=== PATIENT | female | born 1955 | race Caucasian/White ===

== ENCOUNTER 2016-10-13 16:51 | Inpatient (IN) | payer BC ==
[~2016-10-13] VITALS: Ht 165.1 cm; Wt 108.0 kg
--- NOTE | ~2016-10-13 | HC ---
[facility] [place] [address] CONSULTATION Name: BARRIE ARCOS Room #: 305-P ADM IN M.R.#: [id number] Admission: 10/13/16 Attend Phys: Ling Lopez Discharge: Date of : 57 Report #: [id number] THIS REPORT FOR: //name// CC: Ling Eaton REASON FOR CONSULTATION: I was asked to evaluate concerning fever and right groin pain. HISTORY OF PRESENT ILLNESS: The patient is a 61-year-old who developed pain second week of September involving her right groin. She reports no specific trauma other than she stretched a little bit more than normal the day before when she was getting in and out a jeep. Initially no fever, chills, or sweats. She did have significant pain that limited her range of motion for several days. She then fell a bit better in last weekend, went on a camping trip to in [place]. While there, she had acute worsening of her pain. Presented to the emergency room in [place], [place] where CT showed some nonspecific staining in the perinephric fat, otherwise was unremarkable. She did not improve the following this and now returns for further evaluation. She has had low-grade fever. She has had nausea. Her pain has been excruciating involving the right groin across the pelvis. No recent surgery. No recent dental work. No other invasive procedures done prior to this. She did receive one dose of ciprofloxacin prior to admission, now is on vancomycin and Zosyn. She has had a hysterectomy. No bowel procedures done. REVIEW OF SYSTEMS: Notes no headache, cough, sputum, back pain, although she does have some pain in the right buttock and lower back region on the right. No seizures or other neurologic complaints. No travel outside the [place]. ALLERGIES: CODEINE. MEDICATIONS: As noted on her MAR, which were reviewed. PAST MEDICAL HISTORY: Hysterectomy, right ovarian cyst removal, cholecystectomy, thyroid cancer with thyroidectomy, hypertension, hyperlipidemia, carpal tunnel syndrome, and diet controlled diabetes. FAMILY HISTORY: Coronary artery disease and cancer. SOCIAL HISTORY: Nonsmoker, no significant alcohol intake. PHYSICAL EXAMINATION: VITAL SIGNS: Maximum temperature has been 99.4, hemodynamically stable, room air saturation was 93%. GENERAL: She was alert, cooperative, and pleasant, in no acute distress. She is obese. [address] [address] CONSULTATION Name: BARRIE ARCOS Room #: 305-P [facility] IN M.R.#: [id number] Admission: 10/13/16 Attend Phys: Ling Lopez Discharge: Date of : 57 Report #: [id number] SKIN: Unremarkable. LYMPH: Unremarkable. HEENT: Unremarkable. NECK: Supple. LUNGS: Clear. HEART: Regular, without murmur. ABDOMEN: Soft, was tender in the pelvic region. No appreciable hepatosplenomegaly or mass. She had significant amount of tenderness when palpating the groin pubic region. No perianal tenderness. No perineal tenderness. Vaginal examination was not performed. EXTREMITIES: She had pain and guarding when moving her right hip. She did have range of motion in the hip. Other joints were normal. There was much irritability in the pelvic region when I laid her down in the bed. NEUROLOGIC: Normal. LABORATORY STUDIES: Sodium 131, potassium 3.5, bicarbonate 23, creatinine 0.7. Hemoglobin 11.6, white count 6.5. Differential was unremarkable. It is noted she did have 28% bands yesterday, platelet count 205,000. Urinalysis, 2+ protein. CT scan of the abdomen and pelvis showed adductor brevis ring enhancing mass within the belly of the muscle, 1.8 x 4 x 2.4 cm. IMPRESSION: A 61-year-old with right pelvic soft tissue mass, suspecting abscess or possible infected hematoma, do not have a characteristics of malignancy. No intraabdominal issues noted on her CAT scan or ultrasound of the pelvis. She did; however, have several scattered sigmoid and descending colon diverticular changes without evidence of inflammation. Recommend needle aspiration if possible and have orthopedic surgery consultation. <ELECTRONICALLY SIGNED> By: Dave Chand MD 10/15/16 0951 [id number] Dave Chand MD /nt
--- NOTE | ~2016-10-13 | 2DMMODE ---
[facility] [address] [address] [place] [address] 2 D/M-MODE ECHOCARDIOGRAM Name: JOSSELYNBARRIEHAWA DOSS Room #: 305-P ADM IN M.R.#: [id number] Admission: 10/13/16 Attend Phys: Ling Walker Discharge: Date of : 57 Date of Service: 10/15/16 1521 Report #: [id number] THIS REPORT FOR: //name// APPROVED REPORT Study performed: 10/15/2016 12:17:31 EXAM: Comprehensive 2D, Doppler, and color-flow Echocardiogram Patient Location: Bedside Room #: 305 Status: routine Other Information Study Quality: Adequate Indications Hx Staph Aureus Bacteremia, High Choesterol, Fever, HPN, DM 2D Dimensions RVDd: 44.91 mm LVEF(%): 52.53 (>50%) IVSd: 8.89 (7-11mm) LVOT Diam: 20.10 (18-24mm) LVDd: 48.28 mm PWd: 8.44 (7-11mm) LVDs: 35.25 (25-40mm) Aortic Root: 29.09 mm Looney's LVEF: 52.53 % Volumes Left Atrial Volume (Systole) Single Plane 4CH: 73.71 mL LA ESV Index: 74.00 mL/m2 Aortic Valve AoV Peak Rip.: 1.38 m/s AO Peak Gr.: 7.64 mmHg LVOT Max P.35 mmHg LVOT Max V: 1.04 m/s DAYANA Vmax: 2.39 cm2 Mitral Valve E/A Ratio: 1.4 MV Decel. Time: 207.25 ms MV E Max Rip.: 1.00 m/s MV A Rip.: 0.69 m/s MV PHT: 60.10 ms IVRT: 64.59 ms [facility] [place] [address] 2 D/M-MODE ECHOCARDIOGRAM Name: JOSSELYNBARRIE SELAM Room #: 305-P [facility] IN M.R.#: [id number] Admission: 10/13/16 Attend Phys: Ling Walker Discharge: Date of : 57 Date of Service: 10/15/16 1521 Report #: [id number] Pulmonary Valve PV Peak Rip.: 0.89 m/s PV Peak Gr.: 3.20 mmHg Pulmonary Vein P Vein S: 0.58 m/s P Vein D: 0.58 m/s P Vein S/D Ratio: 1.00 Tricuspid Valve TR Peak Rip.: 3.05 m/s RAP Estimate: 10.00 mmHg TR Peak Gr.: 37.30 mmHg PA Pressure: 47.00 mmHg Left Ventricle The left ventricle is normal size. There is normal LV segmental wall motion. There is normal left ventricular wall thickness. The left ventricular systolic function is normal. The left ventricular ejection fraction is within the normal range. LVEF is 55%. The left ventricular diastolic function is normal. Right Ventricle The right ventricle is normal size. The right ventricular systolic function is normal. Atria Left atrium is dilated. Right atrium is at the upper limits of normal. Aortic Valve The aortic valve is normal in structure. Trace aortic regurgitation. There is no aortic valvular stenosis. Mitral Valve The mitral valve is normal in structure. Trace mitral regurgitation. No evidence of mitral valve stenosis. Tricuspid Valve The tricuspid valve is normal in structure. There is trace to mild tricuspid regurgitation. The right atrial pressure is estimated at 10 mmHg. There is moderate pulmonary hypertension with an estimated PAP of 47 mmHg. Pulmonic Valve The pulmonary valve is normal in structure. Trace pulmonic regurgitation. [address] [address] 2 D/M-MODE ECHOCARDIOGRAM Name: BARRIE ARCOS SELAM Room #: 305-P [facility] IN .R.#: [id number] Admission: 10/13/16 Attend Phys: Ling Walker Discharge: Date of : 57 Date of Service: 10/15/16 1521 Report #: [id number] Great Vessels The aortic root is normal in size. The ascending aorta is normal in size. IVC is dilated measuring 2.2 cm. Pericardium There is no pericardial effusion. <Conclusion> The left ventricle is normal size. LVEF is 55%. Left atrium is dilated. The aortic valve is normal in structure. Trace aortic regurgitation. The mitral valve is normal in structure. Trace mitral regurgitation. The tricuspid valve is normal in structure. There is trace to mild tricuspid regurgitation. The right atrial pressure is estimated at 10 mmHg. There is moderate pulmonary hypertension with an estimated PAP of 47 mmHg. The pulmonary valve is normal in structure. Trace pulmonic regurgitation. <ELECTRONICALLY SIGNED> By: Alexandru Cota MD 10/15/16 1521 1521 1521 Alexandru Cota MD /INF
--- NOTE | ~2016-10-13 | TEE ---
[facility] [address] [place] [address] TRANSESOPHAGEAL ECHOCARDIOGRAM Name: BARRIE ARCOS Room #: 305-P ADM IN M.R.#: [id number] Admission: 10/13/16 Attend Phys: Blanca Jiménez Discharge: Date of : 57 Date of Service: 10/18/16 0949 Report #: [id number] THIS REPORT FOR: //name// APPROVED REPORT Study performed: 10/18/2016 08:02:36 EXAM: Comprehensive 2D, Doppler, and color-flow Echocardiogram Room #: 305 Other Information Study Quality: Good Echo Enhancing Agent Indication: Rule out Shunt Agent(s) / Amount(s) Used: Agitated Saline 6 cc Procedure After obtaining informed consent, patient underwent transesophageal echo in the [facility]. Type of Sedation : Conscious Sedation Versed (4 mg) Fentanyl (50 mcg) Transesophageal probe was inserted and advanced into esophagus without difficulty by Duarte Davis MD. Echo enhancement indication: R/O Septal defect. Echo enhancement agent administered: Agitated Saline The LARA was performed without complications. Throughout the procedure, the blood pressure, pulse oximetry, cardiac rhythm, and rate were monitored. The patient tolerated the procedure without adverse effects. Recovery from conscious sedation was uneventful and vital signs were stable. Left Ventricle The left ventricle is normal size. There is normal LV segmental wall motion. There is normal left ventricular wall thickness. The left ventricular systolic function is normal. The left ventricular ejection fraction is within the normal range. LVEF 60%. Right Ventricle The right ventricle is normal size. The right ventricular systolic function is normal. Atria Normal left atrium. No masses or clots. Injection of contrast [facility] [address] [place] [address] TRANSESOPHAGEAL ECHOCARDIOGRAM Name: BARRIE ARCOS Room #: 305-P ADM IN M.R.#: [id number] Admission: 10/13/16 Attend Phys: Blanca Jiménez Discharge: Date of : 57 Date of Service: 10/18/16 0949 Report #: [id number] documented no shunting Right atrium is at the upper limits of normal. Aortic Valve The aortic valve is normal in structure. No aortic regurgitation is present. There is no aortic valvular stenosis. Mitral Valve The mitral valve is normal in structure. Mild mitral regurgitation. No evidence of mitral valve stenosis. Tricuspid Valve The tricuspid valve is normal in structure. Trace to mild tricuspid regurgitation. Pulmonic Valve The pulmonary valve is normal in structure. There is no pulmonic valvular regurgitation. Great Vessels The aortic root is normal in size. IVC is normal in size and collapses >50% with inspiration. Pericardium There is no pericardial effusion. <Conclusion> The left ventricular systolic function is normal. EF 65%. No shunting by contrast bubble injection Indwelling catheter with tip well into right atrium No masses or clots in left atrium or left atrial appendage The aortic valve is normal in structure. No aortic regurgitation or stenosis The mitral valve is normal in structure. Mild mitral regurgitation. There is no pericardial effusion. No masses or vegetations <ELECTRONICALLY SIGNED> By: Duarte Davis MD, [facility] 10/18/1649 Duarte Davis MD, [facility] /INF
--- NOTE | ~2016-10-13 | HC ---
[facility] [address] [address] [place] [address] CONSULTATION Name: BARRIE ARCOS Room #: 305-P ADM IN M.R.#: [id number] Admission: 10/13/16 Attend Phys: Ling Lopez Discharge: Date of : 57 Report #: [id number] THIS REPORT FOR: //name// CC: Ling Lopez Tri Eaton DATE OF SERVICE: 10/14/2016 HISTORY OF PRESENT ILLNESS: I have been asked to evaluate this 61-year-old lady who presented to the emergency department with lower abdominal pain and bilateral groin pain with onset approximately 3 days ago. The patient intermittently had the pain off and on for 3 weeks. She was on a camping trip with her and became so severe the and son had to carry her. She saw her primary care physician in mid September for the lower abdominal pain and the bilateral groin pain. She has been having fevers. She was given muscle relaxants with minimal improvement. She denies any change in recent bowel activity or bowel changes. The patient's fever and chills with nausea began approximately 3 days ago and have been progressively worsening. She had a CT scan performed in [place], [place] during the camping trip, which demonstrated nonspecific changes. [facility] was consistent with an intermuscular pelvic side wall abscess of 3-4 cm diameter. PAST MEDICAL HISTORY: Consistent with cholelithiasis; diabetes mellitus type 2, diet controlled; thyroid cancer; hypertension and hypercholesterolemia. PAST SURGICAL HISTORY: Tubal ligation, right ovarian cystectomy in 1978, hysterectomy in 1988, cholecystectomy in 1991, thyroidectomy in 2002 and carpal tunnel surgery bilaterally. MEDICATIONS: Melatonin at bedtime, losartan, Cozaar 50 mg daily, Nexium 40 mg, Lipitor 20 mg, Synthroid 0.125 mg, Zyrtec 10, fish oil 1000 mg daily, cholecalciferol, vitamin D and vitamin B12. SOCIAL HISTORY: Does not use tobacco. . Lives with spouse. Occasional alcohol use, but rare, on special occasions. No illegal drugs. ALLERGIES: CODEINE. REVIEW OF SYSTEMS: A 10-point review of systems: The patient has generalized fevers over the last 2-3 days. She denies any abrasions, lacerations or bone fractures over the last 6 months to a year. No unusual abnormalities or injuries to the right extremity or pelvis. PHYSICAL EXAMINATION: GENERAL: Reveals a lady who is resting comfortably in bed, complaining of right hip pain and bilateral lower abdominal pain. Oriented times 3, [place] [address] CONSULTATION Name: BARRIE ARCOS Room #: 305-P [facility] IN M.R.#: [id number] Admission: 10/13/16 Attend Phys: Ling Lopez Discharge: Date of : 57 Report #: [id number]. VITAL SIGNS: She is afebrile currently. Vital signs are within normal limits. HEENT: Pupils equal, round and react to light. No scleral icterus. NECK: Supple. No adenopathy. LUNGS: Clear at the bases. CARDIOVASCULAR: Regular rate and rhythm. ABDOMEN: Obese. Mild tenderness in the right lower quadrant, over the anterior iliac crest region. NEUROLOGIC: She is oriented times 3, with bilateral motor symmetry. LABORATORY DATA: Review of the CT scan demonstrates the 3-4 cm lateral pelvic sidewall abscess, in the intermuscular abdominal wall in the pelvis. White count within normal limits. No other abnormalities. DIAGNOSTIC IMPRESSION: Abdominal wall and pelvic side wall abscess. This will require interventional radiology consultation and possible CAT scan-guided drainage. Also consider consultation with orthopedic surgery if this requires surgical drainage. Thank you for allowing us to participate in her care. We will follow her with you. <ELECTRONICALLY SIGNED> By: Timothy Rivers MD, FACS 10/15/16 0945 1134 1544 Timothy Rivers MD, FACS /nt
[2016-10-13 16:53] VITALS: BP 115/85
[2016-10-13 18:44] LABS: HEMOGLOBIN 12.5 gm/dL (12.0-15.0); MCH 28.4 pg (26.0-34.0); MCHC 33.9 g/dL (28.0-37.0); PLATELET COUNT 241 thou/uL (150-400); RBC 4.41 mil/uL (4.20-5.00); WBC 8.4 thou/uL (4.0-11.0)
[2016-10-13 18:45] LABS: MANUAL DIFF YES
[2016-10-13 18:51] LABS: CALCIUM 8.8 mg/dL (8.5-10.1); CREATININE 0.9 mg/dL (0.6-1.0); POTASSIUM 3.8 mmol/L (3.5-5.1)
[2016-10-13 19:06] LABS: ABSOLUTE NEUTROPHILS 7.6 thou/uL (1.4-8.2); TOTAL CELL COUNT 100
[2016-10-13 21:05] LABS: URINE BILIRUBIN 1+ (Negative); URINE BLOOD 1+ (Negative); URINE COLOR YELLOW; URINE GLUCOSE-RANDOM* NEGATIVE (Negative); URINE KETONES 1+ (Negative); URINE LEUKOCYTES-REFLEX NEGATIVE (Negative); URINE PROTEIN (DIPSTICK) 2+ (Negative); URINE SPECIFIC GRAVITY 1.015 (1.003-1.035)
[2016-10-13 21:06] LABS: ICTOTEST (BILI CONFIRMATORY) Negative (Negative)
[2016-10-13 21:14] LABS: SQUAMOUS >10 Many /LPF (0-3)
[2016-10-13 21:15] LABS: CASTS None Seen /LPF (None Seen); URINE RBC 0-2 Rare /HPF (0-2)
[2016-10-13 21:16] LABS: AMORPHOUS URATES Moderate /LPF (None Seen); URINE WBC-REFLEX 0-5 Rare /HPF (0-5)
[2016-10-13 23:09] VITALS: BP 140/75
[2016-10-14] VITALS (12 sets, daily range): BP systolic 120–142; BP diastolic 9–70
[2016-10-14] MEDS ORDERED: MELATONIN PO (00:37)
[2016-10-14] MEDS ORDERED: LIPITOR 20 MG T20 M1 PO (00:38)
[2016-10-14] MEDS ORDERED: NEXIUM40 MG PO (00:38)
[2016-10-14] MEDS ORDERED: COZAAR 50 MG TA50 M2 PO (00:38)
[2016-10-14] MEDS ORDERED: FISH OIL 1,001000 M2 PO (00:39)
[2016-10-14] MEDS ORDERED: LEVOTHYROXIN0.125 M1 PO (00:39)
[2016-10-14] MEDS ORDERED: ZYRTEC10 M4 PO (00:39)
[2016-10-14] MEDS ORDERED: CO Q-10100 MG PO (00:41)
[2016-10-14] MEDS ORDERED: VITAMIN D1000 UNI1 PO (00:46)
[2016-10-14] MEDS ORDERED: B-12500 MCG PO (00:47)
[2016-10-14 06:40] LABS: ABSOLUTE NEUTROPHILS 5.5 thou/uL (1.4-8.2); BASOPHILS 0.5 % (0.0-2.0); EOSINOPHILS 0.2 % (0.0-3.0); HEMATOCRIT 34.1 % (37.0-47.0); HEMOGLOBIN 11.6 gm/dL (12.0-15.0); LYMPHOCYTES 8.1 % (24.0-44.0); MCH 28.4 pg (26.0-34.0); MCHC 33.9 g/dL (28.0-37.0); MCV 83.9 fL (80.0-100.0); MONOCYTES 6.4 % (1.0-8.0); PLATELET COUNT 205 thou/uL (150-400); POLYS 84.8 % (36.0-66.0); RBC 4.07 mil/uL (4.20-5.00); WBC 6.5 thou/uL (4.0-11.0)
[2016-10-14 06:43] LABS: MANUAL DIFF NO
[2016-10-14 06:53] LABS: CALCIUM 8.2 mg/dL (8.5-10.1); CREATININE 0.7 mg/dL (0.6-1.0); POTASSIUM 3.5 mmol/L (3.5-5.1)
[2016-10-14 11:14] LABS: INR 1.1; PROTIME 11.6 Seconds (9.3-11.4)
[2016-10-15 03:18] LABS: GLYCOHEMOGLOBIN (HGB A1C) 6.3 % (4.8-5.6)
[2016-10-15 04:00] VITALS: BP 121/60
[2016-10-15 07:22] LABS: CALCIUM 7.8 mg/dL (8.5-10.1); CREATININE 0.6 mg/dL (0.6-1.0); POTASSIUM 3.3 mmol/L (3.5-5.1)
[2016-10-15 08:15] LABS: ABSOLUTE NEUTROPHILS 5.3 thou/uL (1.4-8.2); BASOPHILS 0.2 % (0.0-2.0); EOSINOPHILS 1.8 % (0.0-3.0); HEMATOCRIT 31.5 % (37.0-47.0); HEMOGLOBIN 10.4 gm/dL (12.0-15.0); MCH 27.7 pg (26.0-34.0); MCHC 32.9 g/dL (28.0-37.0); MCV 84.3 fL (80.0-100.0); MONOCYTES 8.6 % (1.0-8.0); PLATELET COUNT 217 thou/uL (150-400); POLYS 77.4 % (36.0-66.0); RBC 3.73 mil/uL (4.20-5.00); WBC 6.9 thou/uL (4.0-11.0)
[2016-10-15 08:20] VITALS: BP 118/64
[2016-10-15 08:20] LABS: MANUAL DIFF NO
[2016-10-15 16:46] VITALS: BP 142/78
[2016-10-15 19:32] VITALS: BP 122/52
[2016-10-16 04:08] VITALS: BP 133/64
[2016-10-16 08:00] VITALS: BP 117/66
[2016-10-16 09:56] LABS: HEMATOCRIT 33.9 % (37.0-47.0); HEMOGLOBIN 11.3 gm/dL (12.0-15.0); MCH 27.8 pg (26.0-34.0); MCHC 33.3 g/dL (28.0-37.0); MCV 83.3 fL (80.0-100.0); RBC 4.07 mil/uL (4.20-5.00); RDW 15.6 % (10.5-14.5); WBC 6.7 thou/uL (4.0-11.0)
[2016-10-16 16:00] VITALS: BP 161/66
[2016-10-16 19:37] VITALS: BP 139/69
[2016-10-17 04:04] VITALS: BP 147/65
[2016-10-17 08:00] VITALS: BP 132/66
[2016-10-17 16:00] VITALS: BP 158/70
[2016-10-17 20:14] VITALS: BP 150/78
[2016-10-18 03:16] VITALS: BP 179/87
[2016-10-18 05:50] LABS: ABSOLUTE NEUTROPHILS 5.3 thou/uL (1.4-8.2); BASOPHILS 0.4 % (0.0-2.0); EOSINOPHILS 2.1 % (0.0-3.0); HEMATOCRIT 30.7 % (37.0-47.0); HEMOGLOBIN 10.5 gm/dL (12.0-15.0); MCH 28.5 pg (26.0-34.0); MCHC 34.3 g/dL (28.0-37.0); MCV 83.1 fL (80.0-100.0); MONOCYTES 8.7 % (1.0-8.0); POLYS 69.8 % (36.0-66.0); RDW 15.4 % (10.5-14.5); WBC 7.6 thou/uL (4.0-11.0)
[2016-10-18 05:54] LABS: MANUAL DIFF NO; PLATELET COUNT 378 thou/uL (150-400)
[2016-10-18 06:04] LABS: ALBUMIN 1.8 g/dL (3.4-5.0); CALCIUM 8.5 mg/dL (8.5-10.1); CREATININE 0.6 mg/dL (0.6-1.0); TOTAL BILIRUBIN 1.3 mg/dL (<0.1-1.0); TOTAL PROTEIN 6.1 g/dL (6.4-8.2)
[2016-10-18 06:06] LABS: POTASSIUM 2.6 mmol/L (3.5-5.1)
[2016-10-18 07:44] VITALS: BP 152/72
[2016-10-18 16:00] VITALS: BP 156/81
[2016-10-18 20:00] VITALS: BP 175/84
[2016-10-19 04:00] VITALS: BP 154/86
[2016-10-19 06:01] LABS: ABSOLUTE NEUTROPHILS 6.2 thou/uL (1.4-8.2); BASOPHILS 0.6 % (0.0-2.0); EOSINOPHILS 2.8 % (0.0-3.0); HEMATOCRIT 33.3 % (37.0-47.0); HEMOGLOBIN 11.2 gm/dL (12.0-15.0); LYMPHOCYTES 21.1 % (24.0-44.0); MCHC 33.7 g/dL (28.0-37.0); MCV 83.1 fL (80.0-100.0); MONOCYTES 7.3 % (1.0-8.0); PLATELET COUNT 444 thou/uL (150-400); POLYS 68.2 % (36.0-66.0); RDW 15.6 % (10.5-14.5); WBC 9.1 thou/uL (4.0-11.0)
[2016-10-19 06:03] LABS: MANUAL DIFF NO
[2016-10-19 06:23] LABS: CALCIUM 8.9 mg/dL (8.5-10.1); CREATININE 0.6 mg/dL (0.6-1.0); POTASSIUM 3.7 mmol/L (3.5-5.1)
[2016-10-19 07:42] VITALS: BP 157/93
[2016-10-19 16:47] VITALS: BP 156/90
[2016-10-19 19:25] VITALS: BP 158/77
[2016-10-20 04:18] VITALS: BP 154/75
[2016-10-20 07:28] VITALS: BP 145/76
[2016-10-20] MEDS ORDERED: NORCO 5-325 TA1 EACH PO (11:36)
[2016-10-20 12:28] VITALS: BP 145/76
[2016-10-20] MEDS ORDERED: KLOR-CON 1010 MEQ PO (13:42)
[2016-10-20 14:13] VITALS: BP 145/76
[2016-10-20 14:14] VITALS: BP 145/76
[2016-10-20 15:15] VITALS: BP 170/83
== END 2016-10-20 17:04 | disposition home health service (06) | DRG 372 ==
LOC: ER 16:51 → 3N 21:34 → EROBS 21:34 → 3N 23:11
PROVIDERS: Emergency Medicine; Hospitalist; Internal Medicine; Internal Medicine Endocrinology, Diabetes & Metabolism; Nurse Practitioner Acute Care; Specialist; Surgery
DX: K65.1 Peritoneal abscess (principal); R78.81 Bacteremia; E11.9 Type 2 diabetes mellitus without complications; L30.9 Dermatitis, unspecified; E87.6 Hypokalemia; B95.61 Methicillin susceptible Staphylococcus aureus infection as the cause of diseases classified elsewhere; I10 Essential (primary) hypertension; E78.5 Hyperlipidemia, unspecified; E03.9 Hypothyroidism, unspecified; E89.0 Postprocedural hypothyroidism; Z88.6 Allergy status to analgesic agent; Z79.899 Other long term (current) drug therapy; Z79.4 Long term (current) use of insulin; Z82.49 Family history of ischemic heart disease and other diseases of the circulatory system; Z80.9 Family history of malignant neoplasm, unspecified; Z90.710 Acquired absence of both cervix and uterus; Z90.49 Acquired absence of other specified parts of digestive tract; Z85.850 Personal history of malignant neoplasm of thyroid
CPT/HCPCS: 10094; 27000

== ENCOUNTER 2016-11-01 16:30 | Emergency (ER) | payer BC ==
[~2016-11-01] VITALS: Ht 165.1 cm; Wt 103.0 kg
[~2016-11-01 16:30] MED LIST: B-12500 MCG PO; CO Q-10100 MG PO; COZAAR 50 MG TA50 M2 PO; FISH OIL 1,001000 M2 PO; KLOR-CON 1010 MEQ PO; LEVOTHYROXIN0.125 M1 PO; LIPITOR 20 MG T20 M1 PO; MELATONIN PO; NEXIUM40 MG PO; NORCO 5-325 TA1 EACH PO; VITAMIN D1000 UNI1 PO; ZYRTEC10 M4 PO
== END 2016-11-01 18:28 | disposition home or self-care (01) ==
LOC: ER 16:30
DX: T82.898A Other specified complication of vascular prosthetic devices, implants and grafts, initial encounter (principal); Z90.710 Acquired absence of both cervix and uterus; F10.99 Alcohol use, unspecified with unspecified alcohol-induced disorder; I10 Essential (primary) hypertension; E78.00 Pure hypercholesterolemia, unspecified; E89.0 Postprocedural hypothyroidism; E11.9 Type 2 diabetes mellitus without complications; Z90.49 Acquired absence of other specified parts of digestive tract; Z85.850 Personal history of malignant neoplasm of thyroid; Z98.890 Other specified postprocedural states; Z88.5 Allergy status to narcotic agent; Y84.8 Other medical procedures as the cause of abnormal reaction of the patient, or of later complication, without mention of misadventure at the time of the procedure; Y92.89 Other specified places as the place of occurrence of the external cause
CPT/HCPCS: 27000

== ENCOUNTER 2019-01-22 08:54 | Emergency (ER) | payer OTHER ==
[~2019-01-22] VITALS: Ht 165.1 cm; Wt 121.1 kg
[2019-01-22] MEDS ORDERED: BLACK CHERRY (09:07)
[2019-01-22 09:29] LABS: BASOPHILS 1.2 % (0.0-2.0); EOSINOPHILS 1.8 % (0.0-3.0); HEMOGLOBIN 14.4 gm/dL (12.0-15.0); LYMPHOCYTES 24.9 % (24.0-44.0); MCHC 32.8 g/dL (28.0-37.0); MCV 88.5 fL (80.0-100.0); MONOCYTES 4.4 % (1.0-8.0); POLYS 67.7 % (36.0-66.0); RBC 4.97 mil/uL (4.20-5.00); WBC 9.8 thou/uL (4.0-11.0)
[2019-01-22 09:35] LABS: CALCIUM 9.5 mg/dL (8.5-10.1); CREATININE 0.9 mg/dL (0.6-1.0)
[2019-01-22 09:36] LABS: POTASSIUM 4.2 mmol/L (3.5-5.1)
[2019-01-22 09:41] LABS: ALBUMIN 3.5 g/dL (3.4-5.0); TOTAL PROTEIN 7.5 g/dL (6.4-8.2)
[2019-01-22 09:52] LABS: PLATELET COUNT 296 thou/uL (150-400); PLATELET ESTIMATE NORMAL
[2019-01-22] MEDS ORDERED: ULTRAM50 MG PO (12:08)
[2019-01-22] MEDS ORDERED: ONDANSETRON HCL4 M2 PO (12:08)
[2019-01-22 12:12] VITALS: BP 145/75
== END 2019-01-22 12:22 | disposition home or self-care (01) ==
LOC: ER 08:54
PROVIDERS: Emergency Medicine
DX: M25.562 Pain in left knee (principal); I10 Essential (primary) hypertension; E11.9 Type 2 diabetes mellitus without complications; E78.00 Pure hypercholesterolemia, unspecified; Z85.850 Personal history of malignant neoplasm of thyroid; Z90.89 Acquired absence of other organs; Z90.710 Acquired absence of both cervix and uterus; Z90.49 Acquired absence of other specified parts of digestive tract; Z98.890 Other specified postprocedural states; Z88.5 Allergy status to narcotic agent

== ENCOUNTER → 2020-10-28 | Outpatient (CLI) | payer OTHER ==
[~2020-10-28] MED LIST changes: +BLACK CHERRY; +ONDANSETRON HCL4 M2 PO; +ULTRAM50 MG PO
== END ==
LOC: CAT 10:34
PROVIDERS: ATTEND Internal Medicine Cardiovascular Disease
DX: Z13.6 Encounter for screening for cardiovascular disorders (principal); E78.00 Pure hypercholesterolemia, unspecified; I25.10 Atherosclerotic heart disease of native coronary artery without angina pectoris